=== PATIENT | female | born 1930 | race Caucasian/White ===

== ENCOUNTER 2017-01-25 05:39 | Inpatient (IN) | payer OTHER ==
[~2017-01-25] VITALS: Ht 160 cm; Wt 79.3 kg
[~2017-01-25 05:39] MED LIST: ASCORBIC ACID500 M3 PO; BIOFREEZE TP; CALCIUM 600 MG1 EACH PO; CO Q-10200 MG PO; CYANOCOBALAM1000 MCG PO; DETROL LA4 MG PO; FERROUS SULFAT325 MG PO; FISH OIL 1,0001 EAC7 PO; FISH OIL 1,001000 M1 PO; FOLIC ACID0.4 MG PO; GLUCOSAMINE H1500 MG PO; HYDROCODON-ACE1 EACH PO; IRON325 M1 PO; K-DUR20 MEQ PO; LEVAQUIN500 MG PO; LEVOTHYROXINE50 MCG PO; LIDODERM 5% P1 PATCH TD; LOSARTAN POTASS50 MG PO; METFORMIN HCL500 MG PO; MICROZIDE12.5 M1 PO; NEXIUM40 MG PO; PRANDIN1 MG PO; PRESERVISION T1 EACH PO; ROBITUSSIN100 MG/5 M PO; ST. JOSEPH ASPI81 MG PO; TOPROL XL100 MG PO; TYLENOL REGULA325 MG PO; VENTOLIN HFA18 GM IH; VITAMIN D2000 UNIT PO; VOLTAREN 1% GE100 GM TP
[2017-01-25 06:29] LABS: HEMATOCRIT 39.7 % (36.0-46.0); MCH 35.2 PG (29.0-34.0); MCV 103.4 FL (83-99); MEAN PLAT.VOLUME 9.4 uM^3 (9.5-12.4); PLATELET COUNT 137 K/uL (156-360); RBC DIS.WIDTH-CV 13.1 % (11.8-14.6); RBC DIS.WIDTH-SD 49.2 % (39-53); RED BLOOD COUNT 3.84 M/uL (3.80-5.20); WHITE BLOOD COUNT 4.4 K/uL (4.1-10.2)
[2017-01-25 06:57] VITALS: BP 160/74
[2017-01-25 07:09] LABS: POINT-OF-CARE METER ID UU14174212
[2017-01-25 07:20] LABS: Estimated Average Glucose 108 mg/dL (70-123); HEMOGLOBIN A1c (GLYCOHEMOGLOB) 5.4 % HGB (Below 5.7)
[2017-01-25 09:41] LABS: POINT-OF-CARE METER ID UU13113675
[2017-01-25 14:16] VITALS: BP 138/61
[2017-01-25 16:38] VITALS: BP 140/63
[2017-01-25 16:47] LABS: POINT-OF-CARE METER ID UU14188577
[2017-01-25 19:38] VITALS: BP 140/73
[2017-01-25 21:51] LABS: POINT-OF-CARE METER ID UU14208753
[2017-01-25 23:14] VITALS: BP 141/65
[2017-01-26 05:23] VITALS: BP 157/76
[2017-01-26 06:55] LABS: POINT-OF-CARE METER ID UU14117124
[2017-01-26 08:12] LABS: HEMATOCRIT 36.5 % (36.0-46.0); MCV 104.9 FL (83-99)
[2017-01-26 08:18] VITALS: BP 124/58
[2017-01-26] MEDS ORDERED: ASPIRIN EC325 MG PO (09:19)
[2017-01-26 11:33] VITALS: BP 112/58
[2017-01-26 15:52] VITALS: BP 117/69
[2017-01-26 22:00] LABS: POINT-OF-CARE METER ID UU14117124
[2017-01-26 23:14] VITALS: BP 123/60
[2017-01-27 06:28] LABS: HEMATOCRIT 30.1 % (36.0-46.0); MCV 105.6 FL (83-99)
[2017-01-27 06:42] LABS: POINT-OF-CARE METER ID UU14117124
[2017-01-27 08:31] VITALS: BP 122/57
[2017-01-27 16:03] VITALS: BP 130/63
[2017-01-27 23:39] VITALS: BP 137/63
[2017-01-28 08:19] VITALS: BP 143/68
[2017-01-28 11:41] LABS: POINT-OF-CARE METER ID UU14117124
[2017-01-28 16:35] LABS: POINT-OF-CARE METER ID UU14188577
[2017-01-28 16:43] VITALS: BP 172/77
== END 2017-01-28 17:54 | disposition home health service (06) | DRG 483 ==
LOC: SDC 05:39 → ENRESERV 10:14 → 2SOUTH 10:24 → 3EAST 10:24 → ENRESERV 12:45 → SDC 14:00 → 3EAST 14:10 → SDC 15:25 → 3EAST 01-28 17:54
PROVIDERS: Orthopaedic Surgery
PROC: 0RRK0J6 Replacement of Left Shoulder Joint with Synthetic Substitute, Humeral Surface, Open Approach (ICD-10-PCS; principal; 2017-01-25)
DX: M19.012 Primary osteoarthritis, left shoulder (principal); I10 Essential (primary) hypertension; E11.9 Type 2 diabetes mellitus without complications; E03.9 Hypothyroidism, unspecified; Z96.651 Presence of right artificial knee joint; K21.9 Gastro-esophageal reflux disease without esophagitis; M81.0 Age-related osteoporosis without current pathological fracture; Z79.82 Long term (current) use of aspirin
CPT/HCPCS: 82948; 83036; 85014; 85018; 85027; 85730; 94799; 97530 GP; J0131; J0330; J0690; J2405; J2795; J3010; J7030; J7050

== ENCOUNTER → 2017-03-30 | Emergency (ER) | payer OTHER ==
[~2017-03-30] VITALS: Ht 160 cm; Wt 72.4 kg
[~2017-03-30] MED LIST changes: +ASPIRIN EC325 MG PO
[2017-03-30 18:35] VITALS: BP 163/81
== END | disposition home or self-care (01) ==
LOC: EME 15:23
PROC: 0HQ0XZZ Repair Scalp Skin, External Approach (ICD-10-PCS; principal; 2017-03-30)
DX: S01.01XA Laceration without foreign body of scalp, initial encounter (principal); M54.9 Dorsalgia, unspecified; W18.2XXA Fall in (into) shower or empty bathtub, initial encounter; Y93.E1 Activity, personal bathing and showering; Y92.002 Bathroom of unspecified non-institutional (private) residence as the place of occurrence of the external cause; I10 Essential (primary) hypertension; E03.9 Hypothyroidism, unspecified; E11.9 Type 2 diabetes mellitus without complications; Z79.84 Long term (current) use of oral hypoglycemic drugs
CPT/HCPCS: 70450; 99281; 99284